=== PATIENT | female | born 1990 | race Two or more races ===

== ENCOUNTER 2016-12-31 06:33 | Inpatient (IN) | payer BC, MEDICAID ==
[~2016-12-31] VITALS: Ht 157.5 cm; Wt 62.0 kg
--- NOTE | ~2016-12-31 | OR ---
PATIENT'S NAME: [facility] AGE: 26 [address] ROOM: [address] [address] LOCATION: BS ADMIT DATE: 12/31/2016 OR/Procedure Report DISCHARGE DATE: FAMILY PHYSICIAN: Yudy Vela MD ATTENDING PHYSICIAN: Yudy Vela SURGEON: Yudy Vela MD GRID CASTING MACHINE OPERATOR HELPER: DATE OF PROCEDURE: 12/31/2016 DIAGNOSES: 1. Spontaneous vaginal delivery of a term male. 2. Artificial rupture of membranes. 3. Group B strep positive. DESCRIPTION OF PROCEDURE: The patient is a 26-year-old, 3, para 2, who came in spontaneous labor. She was found to be 6-7 cm at the time of arrival. One dose of penicillin was given and completed. The patient was making cervical change. Artificial rupture of membranes was done at that time with clear fluid as a result. Within 10 minutes, the patient was complete with one set of contractions and three pushes, baby was delivered in an OA presentation. Baby was suctioned. Cord was doubly clamped. Cord was cut by the family relative. Baby was dried, suctioned, and handed to nursery personnel. Cord blood was obtained. Placenta delivered spontaneously intact. There was a periurethral laceration that was not bleeding and was not repaired. Baby was a male, weighing 6 pounds 3 ounces. scores were 8 at 1 minute and 9 at 5 minutes. Estimated blood loss 200 mL. At this time both mom and baby are doing well. One dose of penicillin was given. MD KAILEY MORRIS/aaron /[id number] d: 12/31/16 1442 t: 01/04/17 1329, OPERATIVE SUMMARY
[~2016-12-31 06:33] MED LIST: APNO TOP; DERMOPLAST SPRA56 GM TOP; FEOSOL325 MG PO; MOTRIN800 MG PO; PERCOCET 5-3251 EACH PO; PRENATAL 1+1)(P1 TAB PO; TUCKS1 EACH TOP
[2016-12-31 07:32] LABS: BASOPHIL % 0.3 %; EOSINOPHIL % 0.4 %; HEMATOCRIT 37.8 % (33.0-46.0); HEMOGLOBIN 12.2 g/dL (11.0-15.0); IMMATURE GRANULOCYTE # 0.1 K/uL (0.0-0.3); IMMATURE GRANULOCYTE % 0.5 %; LYMPHOCYTE # 2.6 K/uL (0.8-4.0); LYMPHOCYTE % 23.2 %; MCH 26.3 pg (27.0-34.0); MCHC 32.3 gm/dL (32.0-36.5); MCV 81.5 fl (83.0-98.0); MONOCYTE # 0.8 K/uL (0.0-1.0); MONOCYTE % 6.8 %; MPV 11.5 fl (9.4-12.4); NEUTROPHIL # (ANC) 7.6 K/uL (1.8-7.8); NEUTROPHIL % 68.8 %; NRBC % 0 /100WBC (0-0.00); PLATELET COUNT 245 K/uL (150-450); RBC 4.64 M/uL (3.50-5.00); RDW-CV 14.2 % (11.9-14.6); WBC 11.1 K/uL (4.0-11.0)
[2017-01-01 04:20] LABS: BASOPHIL % 0.3 %; EOSINOPHIL # 0.1 K/uL (0.0-0.5); EOSINOPHIL % 0.6 %; HEMATOCRIT 32.2 % (33.0-46.0); HEMOGLOBIN 10.7 g/dL (11.0-15.0); IMMATURE GRANULOCYTE # 0.1 K/uL (0.0-0.3); IMMATURE GRANULOCYTE % 0.5 %; LYMPHOCYTE # 2.9 K/uL (0.8-4.0); LYMPHOCYTE % 22.9 %; MCH 26.9 pg (27.0-34.0); MCHC 33.2 gm/dL (32.0-36.5); MCV 80.9 fl (83.0-98.0); MONOCYTE # 0.9 K/uL (0.0-1.0); MONOCYTE % 6.9 %; MPV 11.2 fl (9.4-12.4); NEUTROPHIL # (ANC) 8.8 K/uL (1.8-7.8); NEUTROPHIL % 68.8 %; NRBC % 0 /100WBC (0-0.00); PLATELET COUNT 217 K/uL (150-450); RBC 3.98 M/uL (3.50-5.00); WBC 12.8 K/uL (4.0-11.0)
[2017-01-02] MEDS ORDERED: DERMOPLAST SPRA56 GM TOP (09:32)
[2017-01-02] MEDS ORDERED: MOTRIN800 MG PO (09:33)
== END 2017-01-02 11:50 | disposition disaster alternative care site (69) | DRG 775 ==
LOC: GOBS 06:33 → GOBM 06:33 → GOBS 06:34 → GOBM 06:35 → GOBS 01-02 11:50 → GOBM 01-07 06:04
PROVIDERS: ADMIT Family Medicine
PROC: 10907ZC Drainage of Amniotic Fluid, Therapeutic from Products of Conception, Via Natural or Artificial Opening (ICD-10-PCS; principal; 2016-12-31)
PROC: 10E0XZZ Delivery of Products of Conception, External Approach (ICD-10-PCS; principal; 2016-12-31)
PROC: 3E0234Z Introduction of Serum, Toxoid and Vaccine into Muscle, Percutaneous Approach (ICD-10-PCS; 2017-01-01)
DX: O99.824 Streptococcus B carrier state complicating childbirth (principal); O26.893 Other specified pregnancy related conditions, third trimester; O71.82 Other specified trauma to perineum and vulva; Z67.41 Type O blood, Rh negative; Z3A.39 39 weeks gestation of pregnancy; Z37.0 Single live birth
CPT/HCPCS: J2001; J2540; J2590; J2791; J3010; J7120